=== PATIENT | male | born 1945 | race Caucasian/White ===

== ENCOUNTER → 2017-03-16 | Outpatient (CLI) | payer BC, MEDICARE ==
--- NOTE | 2017-03-16 16:55 | RAD ---
APPROVED REPORT Patient Location : OUT-PATIENT Indications Varicose Veins venous insufficiency Deep System Deep Venous Thrombosis present : No Deep Venous Reflux present : No Greater Saphenous Veins (GSV) Significant venous relux noted in the RIGHT GSV at the following levels : Superficial Femoral Junctio n, Proximal Thigh, Mid Thigh, Distal Thigh, , Proximal Calf, Mid Calf, Distal Calf Lesser Saphenous Veins (LSV) Significant venous reflux is noted in the Right LSV. Right Thigh extension noted : No Findings Ardon scale images of the right greater and lesser saphenous veins were obtained. On limited imaging t here is no evidence of thrombus. Multiple varicosities are noted in the right lower extremity below t he knee. The saphenofemoral junction measures approximately 6.2 mm to 10 mm. The great saphenous vein has a re flux time of approximately 3.5 seconds throughout its course. The right lesser saphenous vein measure s approximately 4.1 mm and does not show any evidence of reflux. The left lesser and greater saphenou s veins do not show any evidence of reflux. The left greater saphenous vein measures approximately 6 mm. Critical Notification Critical Value: No <Conclusion> Positive for reflux in the right great saphenous vein. Multiple right lower extremity venous varicosi ties are noted. Cannot rule out perforators.
--- NOTE | 2017-03-16 17:03 | RAD ---
APPROVED REPORT Bilateral Lower Extremity Venous Study for Venous Competence, DVT Patient Location: OUT-PATIENT Indications Varicose Veins venous insufficiency Vein Imaging (Right) CFV (R): Compressible SFJ (R): Compressible FEM (R): Compressible POP (R): Compressible DFV (R): Compressible PTV (R): Spontaneous GSV (R): Spontaneous Peroneals (R): Spontaneous Vein Imaging (Left) CFV (L): Compressible SFJ (L): Compressible FEM (L): Compressible POP (L): Compressible DFV (L): Compressible PTV (L): Spontaneous GSV (L): Spontaneous Peroneals (L): Spontaneous Doppler Evaluation (Right) CFV (R): Spontaneous POP (R):Spontaneous Doppler Evaluation (Left) CFV (L):Spontaneous POP (L):Spontaneous Findings Ardon scale images of the bilateral lower extremity deep venous veins were evaluated. No evidence of t hrombus is noted and the veins appear compressible from the common femoral to popliteal segments bila terally. Below the knee there is spontaneous flow and no evidence of thrombus is identified. Critical Notification Critical Value: No <Conclusion> Negative for DVT in the bilateral lower extremities.
== END | disposition home or self-care (01) ==
LOC: US 11:50
PROVIDERS: ATTEND Internal Medicine Cardiovascular Disease
DX: I87.2 Venous insufficiency (chronic) (peripheral) (principal); I83.93 Asymptomatic varicose veins of bilateral lower extremities
CPT/HCPCS: 93970

== ENCOUNTER → 2017-04-12 | Outpatient (CLI) | payer BC ==
--- NOTE | 2017-04-13 08:22 | CARD ---
APPROVED REPORT EXAM: Two-dimensional and M-mode echocardiogram with Doppler and color Doppler. Other Information Quality : Good Rhythm : PVC's INDICATION Hypertension/HCVD 2D DIMENSIONS RVDd3.5 (2.9-3.5cm)Left Atrium(2D)3.7 (1.6-4.0cm) IVSd1.2 (0.7-1.1cm)Aortic Root(2D)3.4 (2.0-3.7cm) LVDd5.5 (3.9-5.9cm)LVOT Diameter2.2 (1.8-2.4cm) PWd1.1 (0.7-1.1cm)LVDs4.4 (2.5-4.0cm) FS (%) 27.0 %SV64.4 ml LVEF(%)55.0 (>50%) Aortic Valve AoV Peak Markus.114.9cm/sAoV VTI24.9cm AO Peak GR.5.3mmHgLVOT Peak Markus.102.1cm/s LVOT VTI 24.73cmAO Mean GR.3mmHg REYMUNDO (VMAX)3.68pe1FDG (VTI)3.95cm2 Mitral Valve MV E Wdpoqgwx32.5cm/sMV DECEL [id number] MV A Sozziuog07.3cm/sMV ZVL22yx E/A Ratio0.7MVA (PHT)3.03cm2 TDI E/Lateral E'6.2E/Medial E'8.1 Tricuspid Valve TR P. Jsmqwcza689wh/sRAP [id number] TR Peak Gr.[id number] Pulmonary Vein S1 Mgchzrrw14.6cm/sD2 Apsuayyr24.7cm/s PVa [id number] LEFT VENTRICLE The left ventricle is normal size. There is mild concentric left ventricular hypertrophy. The left ve ntricular systolic function is normal and the ejection fraction is within normal range. The Ejection Fraction is 55-60%. There is normal LV segmental wall motion. Transmitral Doppler flow pattern is Gra de I-abnormal relaxation pattern. RIGHT VENTRICLE The right ventricle is normal size. The right ventricular systolic function is normal. ATRIA The left atrium size is normal. The right atrium size is normal. The interatrial septum is intact wit h no evidence for an atrial septal defect or patent foramen ovale as noted on 2-D or Doppler imaging. AORTIC VALVE The aortic valve is calcified but opens well. Doppler and Color Flow revealed trace aortic regurgitat ion. There is no significant aortic valvular stenosis. MITRAL VALVE The mitral valve is normal in structure and function. There is no evidence of mitral valve prolapse. There is no mitral valve stenosis. Doppler and Color-flow revealed trace mitral regurgitation. TRICUSPID VALVE The tricuspid valve is normal in structure and function. Doppler and Color Flow revealed trace tricus pid regurgitation. There is mild pulmonary hypertension. The PA pressure was estimated at 32 mmHg. Th ere is no tricuspid valve stenosis. PULMONIC VALVE Doppler and Color Flow revealed mild pulmonic valvular regurgitation. There is no pulmonic valvular s tenosis. GREAT VESSELS The aortic root is normal in size. The ascending aorta is mildly dilated at 3.7 cm. The IVC is normal in size and collapses >50% with inspiration. PERICARDIAL EFFUSION There is no evidence of significant pericardial effusion. Critical Notification Critical Value: No <Conclusion> The left ventricular systolic function is normal and the ejection fraction is within normal range. T he Ejection Fraction is 55-60%. There is normal LV segmental wall motion. Doppler and Color Flow revealed trace tricuspid regurgitation. There is mild pulmonary hypertension. The PA pressure was estimated at 32 mmHg. The ascending aorta is mildly dilated at 3.7 cm.
== END | disposition home or self-care (01) ==
LOC: ECHO 08:36
PROVIDERS: ATTEND Internal Medicine Cardiovascular Disease
DX: I08.3 Combined rheumatic disorders of mitral, aortic and tricuspid valves (principal); I10 Essential (primary) hypertension; I27.2 Other secondary pulmonary hypertension
CPT/HCPCS: 93306

== ENCOUNTER → 2017-04-26 | Outpatient (CLI) | payer BC ==
[~2017-04-26] MED LIST: LIDOCAINE 1%/EPI 1:100,000 50 ML, SODIUM BICARBONATE VIAL 5 MEQ in IV NORMAL SALINE 100... SQ ONE
--- NOTE | 2017-04-26 16:55 | CARD ---
APPROVED REPORT Patient StatusOUT-PATIENT Procurement Specialist: RAÚL SHERMAN Procedure(s) performed: Endovenous radiofrequency ablation of the right greater saphenous vein. INDICATION FOR PROCEDURE The indication(s) include : Symptomatic Chronic Venous Insufficiency with Varicose Veins, lower extre mity pain and edema. PROCEDURE NARRATIVE The patient was transferred to the procedure suite and the insufficient saphenous vein was mapped by ultrasound and diagrammed on the underlying skin. The depth and diameter of the vein(s) to be treate d was documented. The varicose tributary veins and suitable access sites were identified and mapped as well. The patient was then positioned supine on the procedure table. The entire limb was sterile ly prepared and the lower extremity and treatment table were sterilely draped. The RF catheter was placed on the sterile field, flushed and wiped down, prepared, and connected by a sterile cable. The patient was placed in reverse-Trendelenburg position and local anesthesia was instilled in the sk in overlying the access site. A skin incision was made overlying the identified and mapped greater s aphenous vein entry site. The vein was punctured through the incision and using ultrasound guidance and the Seldinger technique a guide wire was introduced through the needle which was then exchanged o shu the guide wire for a 7 F sheath. The guide wire was removed and the sheath was flushed. The RF probe was placed into the vein through the sheath and positioned at a point just distal (about 0.5 to 1 cm) to the entrance point of the superficial epigastric artery using ultrasound guidance. After the RF probe position was verified by the ultrasound, tumescent anesthesia was infiltrated, und er ultrasound guidance, precisely into the perivenuus compartment along the entire length of vein fro m the entry site to the saphenofemoral junction until a "halo" of fluid was noted around the vein. The patient was then placed in Trendelenburg position. After the RF probe position was again confirm ed with ultrasound imaging, moderate external compression was applied over the RF heating element, an d RF energy was applied. The probe was withdrawn sequentially in 6.5 cm steps with slight overlap of 7 cm segments of ablation and monitored to keep the probe temperature at 120 degrees Celsius and the generator output well below its maximum power. Treatment Segments: 8 Total Length: 39 cm. Tota l Ablation time: 2 minutes 40 seconds. Repeat ultrasound of the saphenous vein was performed confirming successful treatment. The catheter and sheath were withdrawn and hemostasis established with direct pressure. After assuring hemostasis , the skin incision over the saphenous vein was closed with a bandage and an external compression zarina ssing was applied from the level of the foot to the most proximal level of the thigh.
== END | disposition home or self-care (01) ==
LOC: VNUS 13:25
PROVIDERS: ATTEND Internal Medicine Cardiovascular Disease
DX: I87.2 Venous insufficiency (chronic) (peripheral) (principal); I83.891 Varicose veins of right lower extremity with other complications
CPT/HCPCS: 36475; J3490; J7030

== ENCOUNTER → 2017-04-27 | Outpatient (CLI) | payer BC ==
--- NOTE | 2017-04-27 17:27 | RAD ---
APPROVED REPORT Right Lower Extremity Venous Study for S/P ABLATION Patient Location: OUT-PATIENT Indications Varicose Veins S/P ABLATION X 1 DAY Doppler Evaluation (Right) CFV (R): Spontaneous POP (R):Spontaneous Findings Ardon scale images of the right lower extremity deep venous vessels were performed to rule out a throm bus. The patient is status post ablation. The right great saphenous vein is occluded at its origin to the knee. Below the need appears to be patent. The common femoral vein, superficial femoral vein, popliteal veins are noted to be compressible witho ut any evidence of thrombus and spontaneous Doppler color flow and normal spectral waveforms. The bel ow-knee vessels were not well visualized but are notable for spontaneous flow. No evidence of thrombu s noted in the deep veins. Critical Notification Critical Value: No <Conclusion> NEGATIVE FOR DVT RT GSV IS THROMBOSED FROM ORIGIN TO KNEE, PATENT IN CALF
== END | disposition home or self-care (01) ==
LOC: US 10:20
PROVIDERS: ATTEND Internal Medicine Cardiovascular Disease
DX: I83.91 Asymptomatic varicose veins of right lower extremity (principal)
CPT/HCPCS: 93971